=== PATIENT | female | born 2000 | race Caucasian/White ===

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

== ENCOUNTER 2021-02-24 20:49 | Emergency (ER) | payer OTHER, SELFPAY ==
[2021-02-24 22:20] VITALS: BP 145/84; PULSE 107; RESP 16; TEMP 36.3; O2SAT 99; BMI 46.0
--- NOTE | 2021-02-24 22:23 | HMH.EDUTC ---
[facility] [place] Clinical Impression: UTI (urinary tract infection) Qualifiers: Urinary tract infection type: site unspecified Hematuria presence: without hematuria Qualified Code(s): N39.0 - Urinary tract infection, site not specified Qualifiers: Weeks of gestation: less than 8 weeks Qualified Code(s): Z3A.01 - Less than 8 weeks gestation of Disposition: Home, Self-Care Condition on Discharge: Good Instructions: Diet Additional Instructions: Follow up with your primary care doctor this week to have your urine rechecked and to see about getting a blood hcg level done. Take the medications as directed. Drink plenty of water. GO TO THE ER FOR ANY WORSENING SYMPTOMS OR CONCERNS, ESPECIALLY ANY VAGINAL BLEEDING, ABDOMINAL PAIN, ETC Prescriptions: cephALEXin [cephALEXin 500mg capsule] 500 mg PO Q6H 7 Days #28 cap Transmission Status: Received by [id number] Pnv No.121/Iron/Folic Acid [ Multivitamin Tablet] 1 each PO DAILY 30 Days #30 tab Transmission Status: Received by [id number] Referrals: Provider,Referral, [Primary Care Provider] - Time of Disposition: 22:48 Medical Decision Making - Medical Records Medical records reviewed: No: I reviewed the patient's medical records. - Estevan Inquiry Pt receiving controlled substance: No Vital Signs: 02/24/21 22:20 02/24/21 22:28 Temperature 97.3 F L 97.9 F Temperature Source Oral Pulse Rate 101 H Pulse Rate [Left] 107 H Respiratory Rate 16 18 Blood Pressure 139/80 Blood Pressure [Right Arm] 145/84 H Blood Pressure Mean [Right Arm] 104 Blood Pressure Source [Right Arm] Automatic Cuff Blood Pressure Position [Right Arm] Sitting 02 Sat by Pulse Oximetry 99 - Lab Data Lab results reviewed: Yes: I reviewed the patient's lab results. Lab Results 02/24/21 22:14: Urine HCG, Qual Positive 02/24/21 22:24: Urine Color Kathryn, Urine Appearance Turbid, Urine pH 5.5, Ur Specific [place] > 1.030 H, Urine Protein Negative, Urine Glucose (UA) Negative, Urine Ketones Negative, Urine Blood Negative, Urine Nitrate Negative, Urine Bilirubin Negative, Urine Urobilinogen 0.2, Ur Leukocyte Esterase Negative Orders (Tests/Meds): ORDERS Category Date Time Status Urine Culture Stat Micro 02/24/21 22:24 Ordered [facility] [place] - General Stated complaint: [place] UTI Time Seen by Provider: 02/24/21 22:23 Mode of Arrival: Ambulatory Source of Information: Patient Limitations: No Limitations Description of Symptoms (Recalled from Triage Doc. by RN): PT C/O OF PAIN AND BURNING WITH URINATION. HEENT Symptoms (Recalled from RN notes): No Resp Symptoms (Recalled from RN notes): No Skin Symptoms (Recalled from RN notes): No MS Symptoms (Recalled from RN notes): No Functional Status (Recalled from RN notes): NA - History of Present Illness Provider Complaint: She is here with chief complaints of her period being late and she has had some burning with urination. Her lmp was 01/15/2021. She denies any vaginal bleeding, abdominal pain or other complaints. - Related Data Home Medications Medication Instructions Recorded Confirmed Albuterol Sulfate [Albuterol HFA 1 - 2 puffs IH Q4-6H PRN 07/31/17 07/31/17 Inhaler] Beclomethasone Dipropionate [Qvar] 8.7 gm IH Q4-6H PRN 07/31/17 07/31/17 Previous Rx's Medication Instructions Recorded Cyclobenzaprine HCl [Flexeril 10mg 10 mg PO TID #15 tab 10/23/17 tablet] Ibuprofen [Ibuprofen 400mg 400 mg PO Q6H PRN #20 tab 10/23/17 Tablet] predniSONE [Prednisone 10mg Tab 10 mg PO UD DOSE PK #21 pack 10/23/17 Dose-Pack] Pnv No.121/Iron/Folic Acid 1 each PO DAILY 30 Days #30 tab 02/24/21 [ Multivitamin Tablet] cephALEXin [cephALEXin 500mg 500 mg PO Q6H 7 Days #28 cap 02/24/21 capsule] Allergies Allergy/AdvReac Type Severity Reaction Status Date / Time tioconazole Allergy Verified 07/31/17 16:25 [From [facility]
[2021-02-24 22:27] LABS: Apearance,Urine Turbid (Clear); Color,Urine Amber (Yellow); PH,Urine 5.5 (5.0-8.5); Protein,Urine Negative (Negative); Specific Gravity, Urine > 1.030 (1.005-1.030)
[2021-02-24 22:28] VITALS: BP 139/80; PULSE 101; RESP 18; TEMP 36.6
[2021-02-24 22:28] LABS: Bilirubin,Urine Negative (Negative); Blood, Urine Negative (Negative); Glucose,Urine (UA) Negative (Negative); Ketones,Urine Negative (Negative); UTC Leukocyte Esterase,Urine Negative (Negative); UTC Nitrate,Urine Negative (Negative); Urobilinogen,Urine 0.2 EU/dl (0.2)
[2021-02-24 22:36] LABS: Urine Pregnancy, HCG Qual. Positive (Negative)
== END 2021-02-24 22:50 | disposition home or self-care (01) ==
LOC: UTC 20:56
PROVIDERS: Emergency Provider Nurse Practitioner Family
DX: N39.0 Urinary tract infection, site not specified (principal); Z3A.01 Less than 8 weeks gestation of pregnancy
CPT/HCPCS: 81003; 81025; 87086; 99202; G0463

== ENCOUNTER 2021-04-17 20:46 | Emergency (ER) | payer OTHER, SELFPAY ==
[2021-04-17 20:48] VITALS: BP 150/90; PULSE 103; RESP 19; TEMP 36.6; O2SAT 100; BMI 46.0
[2021-04-17 21:18] LABS: Microscopic, Urine URINE MICROSCOPIC (MICROSCOPIC)
[2021-04-17 21:20] LABS: Basophils # 0.1 K/mm3 (0-0.2); Basophils % 0.4 % (0.1-2.0); Eosinophils # 0.3 K/mm3 (0.0-0.4); Eosinophils % 2.2 % (0.1-12.0); Hematocrit 45.7 % (37.0-47.0); Hemoglobin 14.6 g/dL (12.2-16.2); Lymphocytes % 22.6 % (10-50); Mean Corpuscular HGB Conc 31.8 g/dL (31.8-35.4); Mean Corpuscular Volume 91.1 fl (81-99); Mean Platelet Volume 7.3 fl (7.4-10.4); Monocytes # 0.4 K/mm3 (0.1-1.0); Monocytes % 3.2 % (1.7-9.3); Neutrophils # 9.7 K/mm3 (1.8-7.8); Neutrophils % 71.6 % (37.0-80.0); Platelet Count 452 K/mm3 (142-424); Red Blood Count 5.02 M/mm3 (4.20-5.40); Red Cell Distribution Width 12.9 % (11.5-17.5); White Blood Count 13.5 K/mm3 (4.8-10.8)
[2021-04-17 21:25] LABS: Alanine Aminotransferase 38 U/L (12-78); Albumin Level 4.3 g/dl (3.5-5.0); Albumin/Globulin Ratio 1.2 (1.1-1.8); Alkaline Phosphatase 61 U/L (38-126); Anion Gap 12.6 mEq/L (5-15); Appearance,Urine CLEAR (Clear); Aspartate Amino Transferase 50 U/L (14-36); Bilirubin,Total 0.5 mg/dl (0.2-1.3); Bilirubin,Urine Negative (Negative); Blood Urea Nitrogen 5 mg/dl (7-17); Blood, Urine Negative (Negative); Calcium 9.4 mg/dl (8.4-10.2); Carbon Dioxide 28 mmol/L (22.0-30.0); Chloride 100 mmol/L (98-107); Color,Urine STRAW (Yellow); Creatinine Clearance Estimated 146 mL/min (50-200); Estimated Glomerular Filt Rate 154 ml/min (>60); GFR (African American) 187 ML/MIN (>60); Globulin 3.7 g/dL (1.3-3.2); Glucose 75 mg/dl (74-100); Glucose,Urine (UA) Negative (Negative); Ketones,Urine Negative (Negative); Leukocyte Esterase,Urine Negative (Negative); Nitrate,Urine Negative (Negative); Potassium 4.6 mmoL/L (3.5-5.1); Protein,Urine Negative (Negative); Sodium 136 mmol/L (136-145); Urobilinogen,Urine 0.2 EU/dl (0.2)
[2021-04-17 21:27] LABS: Urine Pregnancy, HCG Qual. Positive (Negative)
[2021-04-17 21:30] LABS: C-Reactive Protein 6.2 mg/L (0-4)
[2021-04-17 21:31] LABS: Bacteria,Urine 1+ /lpf; WBC,Urine Occasional #/hpf (0-3)
[2021-04-17 21:41] LABS: Fetal Membrane Rupture (Rapid) Negative (Negative)
[2021-04-17 21:44] LABS: Procalcitonin 0.046 ng/mL (0.0-2.0)
--- NOTE | 2021-04-17 21:46 | HMH.EDPREG ---
ED Disposition Clinical Impression: Qualifiers: Weeks of gestation: 12 weeks Qualified Code(s): Z3A.12 - 12 weeks gestation of Disposition: Home, Self-Care Condition on Discharge: Good Instructions: DI for -- Discomforts and Remedies Additional Instructions: call your ob for follow up Referrals: Provider,Referral, [Primary Care Provider] - - Critical Care Critical Care Time: No Attestation: On 04/17/21, the high probability of a clinically significant, sudden or life threatening deterioration of the following system(s) required my full and direct attention, intervention and personal management. The time I documented below is in addition to time spent performing reported procedures but includes the following listed in this critical care notation. Medical Decision Making - Medical Records Medical records reviewed: Yes: I reviewed the patient's medical records. - Estevan Inquiry Pt receiving controlled substance: No Vital Signs: 04/17/21 20:48 Temperature 97.9 F Temperature Source Oral Pulse Rate [Right] 103 H Respiratory Rate 19 Blood Pressure [Right Arm] 150/90 H Blood Pressure Mean [Right Arm] 110 02 Sat by Pulse Oximetry 100 Oxygen Delivery Method Room Air - Lab Data Lab results reviewed: Yes: I reviewed the patient's lab results. Lab Results 04/17/21 21:00: Urine Color Straw, Urine Appearance Clear, Urine pH 6.0, Ur Specific [place] 1.010, Urine Protein Negative, Urine Glucose (UA) Negative, Urine Ketones Negative, Urine Blood Negative, Urine Nitrate Negative, Urine Bilirubin Negative, Urine Urobilinogen 0.2, Ur Leukocyte Esterase Negative, Urine WBC Occasional, Ur Squamous Epith Cells 5-10, Urine Bacteria 1+ 04/17/21 21:00: WBC 13.5 H, RBC 5.02, Hgb 14.6, Hct 45.7, MCV 91.1, MCH 29.0, MCHC 31.8, RDW 12.9, Plt Count 452 H, MPV 7.3 L, Neut % (Auto) 71.6, Lymph % (Auto) 22.6, [place] % (Auto) 3.2, Eos % (Auto) 2.2, Baso % (Auto) 0.4, Neut # (Auto) 9.7 H, Lymph # (Auto) 3.0, [place] # (Auto) 0.4, Eos # (Auto) 0.3, Baso # (Auto) 0.1, ESR 13 04/17/21 21:00: Urine HCG, Qual Positive 04/17/21 21:00: Sodium 136, Potassium 4.6, Chloride 100, Carbon Dioxide 28, Anion Gap 12.6, BUN 5 L, Creatinine 0.50 L, Estimated Creat Clear 146, Estimated GFR 154, Est GFR ( Amer) 187, Glucose 75, Calcium 9.4, Total Bilirubin 0.5, AST 50 H, ALT 38, Alkaline Phosphatase 61, C-Reactive Protein 6.2 H, Total Protein 8.0, Albumin 4.3, Globulin 3.7 H, Albumin/Globulin Ratio 1.2, Procalcitonin 0.046, HCG, Quant [id number] H 04/17/21 21:25: Membrane Rupture Negative Result diagrams: 04/17/21 21:00 04/17/21 21:00 Orders (Tests/Meds): ORDERS Category Date Time Status US transvaginal Stat Exams 04/17/21 21:47 Ordered - US Data US Images: Pelvis ED US Reviewed: Yes: I have viewed radiologist's interpretation Preliminary Findings: Normal/NAD (viable iup) HPI - General Chief complaint: OB/Uterine Contractions Stated complaint: 11 weeks, cramps and leaking fluids vaginally Time Seen by Provider: 04/17/21 21:00 Mode of Arrival: Family Vehicle Source of Information: Patient, Medical Record Limitations: No Limitations Description of Symptoms (Recalled from ER Triage Doc. by RN): PT REPORTS TO BE 11WK PREG (LMP 01/15/21) AND FOR THE PAST 2 DAYS HAS HAD INTERMITTENT CRAMPING IN HER VAGINA WELL LEAKING CLEAR FLUIDS. SHE DID SEE HER OBGYN (DR HEADLEY IN [place]) MID AND HAD HER 1ST U/S. PT ALSO STATES SHE HAD A PREV MISCARRIAGE IN SEPTEMBER 17 AND A DNC WAS NEEDED FOR A 10 WK FETUS. PT STATES SHE DID NOT NEED A RHOGAM SHOT FOR HER PREV MISCARRIAGE. PT DENIES ANY VAGINAL BLEEDING, ABD PAIN OR CRAMPING, FEVER, OR N/V/D. - History of Present Illness HPI Narrative: 11 weeks preg with clear vag d/c - sl crampy pain MD Complaint: other (pelvic pain) Onset (ago): hour(s) Location: pelvis Severity: moderate Associated symptoms: denies other symptoms Vaginal discharge: clear V
--- NOTE | 2021-04-17 21:47 | US_ITS ---
PROCEDURE INFORMATION: Exam: US , Transvaginal Exam date and time: 04/17/2021 9:47 PM Age: 20 years old Clinical indication: Lmp or gestational age (in weeks): 12weeks; Antepartum complications; Other: Leakoing fluid; ; Patient HX: Early preg with PT states fluid leaking; Additional info: 11wk pregant, leaking clear fluids, (-) fmr TECHNIQUE: Imaging protocol: Real-time transvaginal obstetrical ultrasound of the maternal pelvis with image documentation. Transvaginal imaging was used for better evaluation of the fetus, adnexa, and/or cervix. COMPARISON: ABDPELW/O CT ABD PELVIS W/O CONTRAST 02/24/2017 5:10 PM FINDINGS: Gestation: Intrauterine gestation. presentation: There is a single viable intrauterine gestation in breech presentation. Active heart tones are identified at 151 beats per minute. [place]-rump length of the fetus is 5.43 cm, which corresponds to a mean gestational age of 12 weeks 1 day. Placenta: The early placenta is posterior. No evidence of placenta previa. The cervix is closed. Qualitative amniotic fluid volume is normal. Cervical length is 2.4 cm. No evidence of subchorionic fluid collection. MATERNAL: Right adnexa: The right ovary measures 2.4 x 1.2 x 1.7 cm. The left ovary is not visualized on this examination. There is no evidence of free fluid within the cul-de-sac. IMPRESSION: 1. There is a single viable intrauterine gestation in breech presentation with active heart tones at 151 beats per minute. 2. [place]-rump length measurements correspond to a mean gestational age of 12 weeks 1 day. 3. The early placenta is posterior. 4. The cervix is closed although cervical length is somewhat short. 5. Qualitative amniotic fluid volume is normal. 6. The right ovary is normal in size and echogenicity. The left ovary is poorly visualized on this examination.
--- NOTE | 2021-04-17 21:48 | PC.NURSE ---
Called on-carl u/s tech for transvaginal us
[2021-04-17 21:52] LABS: Erythrocyte Sedimentation Rate 13 mm/hr (0-20)
--- NOTE | 2021-04-17 22:01 | PC.NURSE ---
updated pt on POC
[2021-04-17 22:08] LABS: HCG,Quantitative 86216 mIU/ml (0-5.42)
--- NOTE | 2021-04-17 22:36 | PC.NURSE ---
Cata with u/s states fetus measures 12wk, posterior position, fluids intact, and fetus active.
[2021-04-17 22:50] VITALS: BP 150/90; PULSE 90; RESP 20; TEMP 36.8; O2SAT 99
== END 2021-04-17 22:54 | disposition home or self-care (01) ==
PROVIDERS: Emergency Provider Emergency Medicine
DX: R10.2 Pelvic and perineal pain (principal); Z3A.12 12 weeks gestation of pregnancy; J45.909 Unspecified asthma, uncomplicated
CPT/HCPCS: 76817; 80053; 81001; 81025; 84112; 84145; 84702; 85025; 85651; 86140; 99283